=== PATIENT | female | born 1960 | race Caucasian/White ===

== ENCOUNTER 2017-08-07 17:35 | Emergency (ER) | payer SELFPAY ==
[~2017-08-07] VITALS: Ht 160 cm; Wt 68.0 kg
[2017-08-07 17:38] VITALS: BP 145/99; PULSE 104; RESP 20; TEMP 99.3; O2SAT 94
--- NOTE | 2017-08-07 18:27 | PD ---
HPI Chief Complaint: Cold / Flu Symptoms Time Seen by Provider: 18:16 Travel History International Travel<30 days: No Contact w/Intl Traveler<30days: No Traveled to known affect area: No History of Present Illness HPI The 57-year-old female presents the emergency department with 2 day history of body aches, fever, cough, wheezing, and shortness of breath. Patient denies nausea or vomiting. Denies diarrhea. Patient denies productive cough. Patient is a smoker but hasn't smoked today due to her chest discomfort. Patient states everything hurts including her hair. Patient has used an inhaler in the distant past but not regularly. Patient denies abdominal pain. She has no known drug allergies. PFSH Social History Alcohol Use: Yes Tobacco Use: Yes Allergies-Medications (Allergen,Severity, Reaction): Coded Allergies: No Known Allergies (Unverified , 08/07/17) Reported Meds & Prescriptions Reported Meds & Active Scripts Active Tramadol (Tramadol HCl) 50 Mg Tab 50 Mg PO Q6H PRN Ventolin Hfa 18 GM Inh (Albuterol Sulfate) 90 Mcg/Act Aer 2 Puff INH Q4-6H PRN Prednisone 20 Mg Tab 20 Mg PO BID 7 Days Azithromycin 500 Mg Tab 500 Mg PO DAILY Review of Systems Except as stated in HPI: all other systems reviewed are Neg General / Constitutional: Positive: Fever, Chills Eyes: No: Visual changes HENT: Positive: Headaches, Sore Throat, Rhinitis, Rhinorrhea, Congestion, No: Nosebleed, Neck Stiffness, Neck Pain, Dental Difficulties, Ear Discharge, Earache Cardiovascular: No: Chest Pain or Discomfort Respiratory: Positive: Cough, Shortness of Breath, Wheezing, No: Sneezing, Orthopnea, Hemoptysis, Night Sweats, Pleuritic Pain Gastrointestinal: No: Nausea, Vomiting, Diarrhea, Abdominal Pain Genitourinary: No: Dysuria Musculoskeletal: No: Pain Skin: No Rash Neurologic: No: Weakness Psychiatric: No: Depression Endocrine: No: Polydipsia Hematologic/Lymphatic: No: Easy Bruising Physical Exam Narrative GENERAL: Patient appears ill but not septic. SKIN: Warm and dry. Normal color. Normal turgor. No rash. HEAD: Atraumatic. Normocephalic. No sinus tenderness. EYES: Pupils equal and round. No scleral icterus. No injection or drainage. ENT: No nasal bleeding or discharge. Mucous membranes pink and moist. Pharynx clear. Airway is patent. TMs are clear bilaterally. NECK: Trachea midline. Supple and nontender. CARDIOVASCULAR: Regular rate and rhythm. RESPIRATORY: No accessory muscle use. Moderate Diffuse wheezes throughout to auscultation. No rales or rhonchi. Breath sounds equal bilaterally. GASTROINTESTINAL: Abdomen soft, non-tender, nondistended. Hepatic and splenic margins not palpable. MUSCULOSKELETAL: Extremities without clubbing, cyanosis, or edema. No obvious deformities. NEUROLOGICAL: Awake and alert. No obvious cranial nerve deficits. Motor grossly within normal limits. Five out of 5 muscle strength in the arms and legs. Normal speech. PSYCHIATRIC: Appropriate mood and affect; insight and judgment normal. Data Data Last Documented VS Vital Signs Date Time Temp Pulse Resp B/P (MAP) Pulse Ox O2 Delivery O2 Flow Rate FiO2 08/07/17 18:30 94 21 08/07/17 17:38 99.3 104 20 145/99 (114) Orders Orders Influenzae A/B Antigen (08/07/17 18:20) Chest, Single Ap (08/07/17 18:20) Albuterol-Ipratropium Neb (Duoneb Neb) (08/07/17 18:30) Prednisone (Deltasone) (08/07/17 18:30) MDM Medical Decision Making Medical Screen Exam Complete: Yes Emergency Medical Condition: Yes Differential Diagnosis Bronchitis. Influenza. Wheezing. Pneumonia. Narrative Course Chest x-ray is ordered. Rapid influenza is ordered. Patient is given DuoNeb 3. Patient is given oral prednisone 60 mg by mouth. Chest x-ray shows nondisplaced posterior 10th rib fracture with no sign of pneumothorax. No infiltrate is noted by radiology. Rapid influenza is negative Patient is treated with azithromycin 500 mg daily for the next 5 days. Patient is continued on prednisone 20 mg twice a day for 1 week. Patient is given albuterol metered-dose inhaler 2 puffs every 4-6 hours when necessary wheezing. Patient also given tramadol 50 mg one every 6 hours when necessary pain #20. Patient is encouraged to continue not smoking. She should follow-up with local primary care physician as needed. Patient can return to emergency Department with worsening symptoms as necessary. Diagnosis Primary Impression: Acute wheezy bronchitis Referrals: [facility] Patient Instructions: Acute Bronchitis (ED), General Instructions, How to Use a Metered-Dose Inhaler (ED), Rib Fracture (ED), Wheezing (ED) Additional Instructions: Chest x-ray shows nondisplaced posterior 10th rib fracture with no sign of pneumothorax. No infiltrate is noted by radiology. Rapid influenza is negative Patient is treated with azithromycin 500 mg daily for the next 5 days. Patient is continued on prednisone 20 mg twice a day for 1 week. Patient is given albuterol metered-dose inhaler 2 puffs every 4-6 hours when necessary wheezing. Patient also given tramadol 50 mg one every 6 hours when necessary pain #20. Patient is encouraged to continue not smoking. She should follow-up with local primary care physician as needed. Patient can return to emergency Department with worsening symptoms as necessary. Med/Other Pt SpecificInfo: Prescription(s) given Scripts Tramadol (Tramadol) 50 Mg Tab 50 MG PO Q6H Y for PAIN, #20 TAB 0 Refills Prov: Mukul Terrazas MD 08/07/17 Albuterol 18 GM Inh (Ventolin Hfa 18 GM Inh) 90 Mcg/Act Aer 2 PUFF INH Q4-6H Y for SHORTNESS OF BREATH, #1 INHALER 0 Refills Prov: Mukul Terrazas MD 08/07/17 Prednisone (Prednisone) 20 Mg Tab 20 MG PO BID for 7 Days, #14 TAB 0 Refills Prov: Mukul Terrazas MD 08/07/17 Azithromycin (Azithromycin) 500 Mg Tab 500 MG PO DAILY for Infection, #5 TAB 0 Refills Prov: Mukul Terrazas MD 08/07/17 Condition: Stable Milan Young Aug 07, 2017 18:27
[2017-08-07] MEDS: RESP: ALBUTEROL 2.5 MG/IPRATROPIUM 0.5 MG NEB (SCH) INH (18:29)
[2017-08-07 18:30] VITALS: O2SAT 94
[2017-08-07] MEDS ORDERED: predniSONE 20 MG TAB PO ONE (18:30)
--- NOTE | 2017-08-07 18:47 | RADRPT ---
EXAM DATE/TIME: 08/07/2017 18:31 [place] COMPARISON: No previous studies available for comparison. INDICATIONS : Short of Breath MEDICAL HISTORY : None. SURGICAL HISTORY : None. ENCOUNTER: Initial ACUITY: 1 day PAIN SCORE: 0/10 LOCATION: Bilateral chest FINDINGS: A single view of the chest demonstrates the lungs to be symmetrically aerated without evidence of mas s, infiltrate or effusion. No evidence of pneumothorax. The cardiomediastinal contours are unremark able. There is a nondisplaced fracture of the posterolateral right 10th rib.. CONCLUSION: 1. Right posterior 10th rib fracture. 2. The lungs are clear. No evidence of pneumothorax. Camacho Islas MD on August 07, 2017 at 18:44 Board Certified Radiologist. This report was verified electronically.
[2017-08-07] MEDS ORDERED: PRED20 PO (18:55)
[2017-08-07] MEDS ORDERED: TRAM50TA PO (18:55)
[2017-08-07] MEDS ORDERED: VENTAER INH (18:55)
[2017-08-07] MEDS ORDERED: AZIT500T2 PO (18:55)
== END 2017-08-07 19:58 | disposition home or self-care (01) ==
LOC: NEPC 17:35
DX: J20.9 Acute bronchitis, unspecified (principal); S22.31XA Fracture of one rib, right side, initial encounter for closed fracture; R06.2 Wheezing; Z72.0 Tobacco use; Z79.899 Other long term (current) drug therapy; X58.XXXA Exposure to other specified factors, initial encounter
CPT/HCPCS: 71010; 87804; 94640; 94664; 99284; J7512